=== PATIENT | male | born 1965 | race Caucasian/White ===

== ENCOUNTER 2017-07-23 22:25 | Inpatient (IN) | payer MEDICARE ==
[~2017-07-23] VITALS: Ht 160 cm; Wt 67.5 kg
[~2017-07-23 22:25] MED LIST: NOHOMEMEDS
[2017-07-24 01:24] LABS: BASOPHIL (%) 0.2 % (0-1); EOSINOPHIL (%) 0.1 % (0-5); HEMATOCRIT 37.1 % (38.0-50.0); HEMOGLOBIN 12.9 G/DL (12.5-16.6); IMMATURE GRANULOCYTE (%) 0.4 % (0.0-0.7); LYMPHOCYTE (%) 8.2 % (15-42); LYMPHOCYTE COUNT 1.2 K/uL (1.0-2.8); MCH 29.7 PG (29.0-34.0); MCHC 34.8 G/DL (30.0-36.0); MCV 85.3 FL (86-99); MONOCYTE (%) 8.1 % (3-12); MONOCYTE COUNT 1.1 K/uL (0-0.8); NEUTROPHIL COUNT 11.6 K/uL (1.8-6.4); NRBC (%) 0.1 /100 WBC (0-0); PLATELET COUNT 278 K/uL (156-360); RBC DIS.WIDTH-CV 12.6 % (11.8-14.6); RED BLOOD COUNT 4.35 M/uL (4.00-5.50)
[2017-07-24] MEDS ORDERED: ADVIL200 MG PO (01:31)
[2017-07-24 01:54] LABS: CHLORIDE 104 MEQ/L (99-109); CREATININE 1.2 MG/DL (0.6-1.3); GFR ESTIMATE (CALCULATED) > 59 mL/min/ (58.99-99999); GLUCOSE 142 mg/dL (70-99); POTASSIUM 4.3 MEQ/L (3.7-5.4); SODIUM 139 MEQ/L (136-147); UREA NITROGEN (BUN) 18 mg/dL (9-23)
[2017-07-24 04:58] VITALS: BP 143/88
[2017-07-24 08:58] VITALS: BP 155/97
[2017-07-24 12:15] VITALS: BP 141/87
[2017-07-24 14:18] LABS: HEMOGLOBIN A1c (GLYCOHEMOGLOB) 7.1 % (Below 5.7)
[2017-07-24 16:01] VITALS: BP 151/88
[2017-07-24 20:21] VITALS: BP 148/81
[2017-07-24 23:39] VITALS: BP 138/79
[2017-07-25 04:46] VITALS: BP 150/76
[2017-07-25 05:04] LABS: HEMATOCRIT 33.8 % (38.0-50.0); HEMOGLOBIN 11.4 G/DL (12.5-16.6); MCH 29.2 PG (29.0-34.0); MCHC 33.7 G/DL (30.0-36.0); MCV 86.7 FL (86-99); PLATELET COUNT 239 K/uL (156-360); RBC DIS.WIDTH-CV 12.6 % (11.8-14.6); RBC DIS.WIDTH-SD 39.9 % (39-53); WHITE BLOOD COUNT 8.6 K/uL (4.1-10.2)
[2017-07-25 05:32] LABS: CHLORIDE 108 MEQ/L (99-109); CREATININE 1.2 MG/DL (0.6-1.3); GFR ESTIMATE (CALCULATED) > 59 mL/min/ (58.99-99999); GLUCOSE 129 mg/dL (70-99); SODIUM 140 MEQ/L (136-147); UREA NITROGEN (BUN) 15 mg/dL (9-23)
[2017-07-25 08:47] VITALS: BP 133/77
[2017-07-25 16:26] VITALS: BP 144/84
[2017-07-25 23:35] VITALS: BP 131/79
[2017-07-26 08:23] VITALS: BP 129/78
[2017-07-26] MEDS ORDERED: GLUCOPHAGE500 MG PO (12:41)
[2017-07-26] MEDS ORDERED: KEFLEX250 MG PO (12:41)
== END 2017-07-26 14:00 | disposition home or self-care (01) | DRG 638 ==
LOC: EME 22:25 → 3EAST 07-24 03:54 → EDOF 07-24 03:54 → ENRESERV 07-24 04:05 → 3EAST 07-24 04:55
PROVIDERS: Hospitalist; Physician Assistant
DX: E11.628 Type 2 diabetes mellitus with other skin complications (principal); L03.115 Cellulitis of right lower limb; E11.65 Type 2 diabetes mellitus with hyperglycemia; E11.40 Type 2 diabetes mellitus with diabetic neuropathy, unspecified; S91.301A Unspecified open wound, right foot, initial encounter; S80.812A Abrasion, left lower leg, initial encounter; S80.811A Abrasion, right lower leg, initial encounter; S70.311A Abrasion, right thigh, initial encounter; W49.09XA Other specified item causing external constriction, initial encounter; Y93.23 Activity, snow (alpine) (downhill) skiing, snowboarding, sledding, tobogganing and snow tubing; Y92.39 Other specified sports and athletic area as the place of occurrence of the external cause; Y99.8 Other external cause status; I10 Essential (primary) hypertension; Z91.14 Patient's other noncompliance with medication regimen; Z80.0 Family history of malignant neoplasm of digestive organs; Z83.3 Family history of diabetes mellitus
CPT/HCPCS: 73630; 80048; 80202; 82948; 83036; 83605; 85025; 85027; 87040; 93971; 99281; 99285; J0692; J0696; J1650; J1815; J2543; J3370; J7030